=== PATIENT | female | born 1995 | race Two or more races ===

== ENCOUNTER 2022-06-05 02:02 | Emergency (ER) | payer MEDICAID, OTHER ==
[~2022-06-05] VITALS: Ht 160 cm; Wt 119.5 kg
[2022-06-05 03:22] VITALS: BP 120/87
== END 2022-06-05 03:35 | disposition home or self-care (01) ==
LOC: ER 02:02 → EDBD 02:02 → ER 03:35
DX: O03.9 Complete or unspecified spontaneous abortion without complication (principal); Z3A.14 14 weeks gestation of pregnancy